=== PATIENT | female | born 1990 | race African-American/Black ===

== ENCOUNTER 2016-03-19 20:03 | Inpatient (IN) | payer OTHER ==
[~2016-03-19] VITALS: Ht 152.4 cm; Wt 103.9 kg
[2016-03-19] VITALS (8 sets, daily range): BP systolic 101–115; BP diastolic 53–60; PULSE 58–84; RESP 18; TEMP 97.6; O2SAT 98–100
[~2016-03-19 20:03] MED LIST: ZOFR4TAB PO
[2016-03-19] MEDS ORDERED: TERBUTALINE INJ 1 MG/ML AMP ONE (20:38)
[2016-03-19] MEDS ORDERED: ACET1CAP18 PO (20:39)
[2016-03-19] MEDS ORDERED: LACTATED RINGER'S 1000 ML INJ 1,000 ML IV PRN (20:42)
[2016-03-19] MEDS ORDERED: LACTATED RINGER'S 1000 ML INJ 1,000 ML IV SCH (20:42)
[2016-03-19] MEDS ORDERED: LIDOCAINE HCL 1% 50 ML VIAL I-DERMAL PRN (20:45)
[2016-03-19] MEDS ORDERED: MINERAL OIL 10 ML VIAL TOPICAL PRN (20:45)
[2016-03-19] MEDS ORDERED: ceFAZolin 2 GM PREMIX 50 ML IV SCH (20:45)
[2016-03-19] MEDS ORDERED: OXYTOCIN 30 UNITS-500ML PREMIX 500 ML IV ONE ×2 (20:45→22:45)
[2016-03-19] MEDS ORDERED: CITRIC ACID-SODIUM CITRATE LIQ 30 ML UDC PO SCH (20:45)
[2016-03-19] MEDS ORDERED: LIDOCAINE HCL 1% 50 ML VIAL INFIL PRN (20:45)
[2016-03-19] MEDS ORDERED: SODIUM CHLORID 0.9% 500 ML INJ 500 ML IV PRN (20:45)
[2016-03-19] MEDS ORDERED: MORPHINE SULFATE PF 5 MG/10 ML VIAL IT ONE (21:00)
[2016-03-19] MEDS ORDERED: SODIUM CHLOR 0.9% 1000 ML INJ 1,000 ML IV PRN (21:02)
[2016-03-19] MEDS ORDERED: OXYTOCIN 10 UNIT/ML AMP ONE (21:08)
--- NOTE | 2016-03-19 21:08 | PD ---
HPI Date Seen: Mar 19, 2016 Time Seen: 20:30 (Jose Polanco MD R1) Travel History International Travel<30 Days: No Contact w/Intl Traveler<30Days: No Known Affected Area: No (Jose Polanco MD R1) History of Present Illness HPI 25-year-old at 38/3 weeks gestation with one visit with Dr. Elis huynh and no other pale care presenting with a one-day history of severe lower pelvic pain. Pain began yesterday around 2-3 PM. Started as moderate pressure in the lower pelvis, occurred intermittently. Progressively became more intense and more frequent, prompting presentation to OB ED. No vaginal bleeding, leakage of fluid. [place] movement yesterday evening, not since. No dysuria, flank pain, RUQ pain, fevers, chills, N/V/D. (Jose Polanco MD R1) History Past Medical History Medical History: Denies Significant Hx (Jose Polanco MD R1) Obstetric History Obstetric History One in 2014 First baby born by (Jose Polanco MD R1) Past Surgical History Narrative Surgical Cholecystectomy (Jose Polanco MD R1) Family History Family History: Negative (Jose Polanco MD R1) Social History Alcohol Use: No Tobacco Use: Yes ([place] since age 15; currently smoking about 2 cigarettes daily) Substance Abuse: Yes (Marijuana daily) (Jose Polanco MD R1) Allergies-Medications (Allergen,Severity, Reaction): Coded Allergies: No Known Allergies (Verified , 03/19/16) Home Meds Reported Medications Acetaminophen (Tylenol)325 Mg Qmr769 Mg PO Q6H PRN (PAIN SCALE 1 TO 10) #2 CAP Ref 0 03/19/16 Discontinued Reported Medications Ondansetron (Zofran)4 Mg Tab4 Mg PO Q8HR PRN (NAUSEA OR VOMITING) Ref 0 01/26/16 Review of Systems Except as stated in HPI: all other systems reviewed are Neg (Jose Polanco MD R1) Physical Exam Narrative GENERAL: Well-nourished, well-developed patient, appearing anxious and intermittently distressed due to pain SKIN: Warm and dry. HEAD: Normocephalic and atraumatic. EYES: No scleral icterus. No injection or drainage. ENT: No nasal drainage noted. Mucous membranes pink. Airway patent. NECK: Supple, trachea midline. No JVD. CARDIOVASCULAR: Tachycardic with regular rhythm, no murmurs, gallops, or rubs. RESPIRATORY: Breath sounds equal bilaterally. No accessory muscle use. ABDOMEN/GI: Abdomen soft, non-tender, no rebound, no guarding GENITOURINARY: External Genitalia: intact and normal in appearance Cervix: Anterior Dilatation: 4-5 Effacement: 70 Station: -3 Presentation: Vertex Membranes: bulging (intact) Uterine Contractions: Irregular every 3-10 mins FHT's: Category: 1 Baseline: 130 Reactive: Y Variability: moderate Decels: N EXTREMITIES: No cyanosis or edema. BACK: Nontender without obvious deformity. No CVA tenderness. NEUROLOGICAL: Awake and alert. Motor and sensory grossly within normal limits. Normal speech. (Jose Polanco MD R1) Data Data Vital Signs Reviewed: Yes Orders Admit To Inpatient (03/19/16 ) Ob (2e) Additional Admit Info (03/19/16 20:25) Terbutaline Inj (Brethine Inj) (03/19/16 20:38) Admit To Inpatient (03/19/16 ) Vital Signs (Adult) .Per protocol (03/19/16 20:42) ^ Heart (03/19/16 20:42) ^ Amnioinfusion (03/19/16 20:42) Urinary Catheter Management .ONCE (03/19/16 20:42) Lactated Ringer's 1000 Ml Inj (Lr 1000 M (03/19/16 20:42) Lactated Ringer's 1000 Ml Inj (Lr 1000 M (03/19/16 20:42) Sodium Chlorid 0.9% 500 Ml Inj (Ns 500 M (03/19/16 20:45) Sodium Chlor 0.9% 1000 Ml Inj (Ns 1000 M (03/19/16 21:02) Lidocaine 1% Inj (50 Ml) (Xylocaine 1% I (03/19/16 20:45) Citric Acid-Sodium Citrate Liq (Bicitra (03/19/16 20:45) Fentanyl Inj (Fentanyl Inj) (03/19/16 20:45) Fentanyl Inj (Fentanyl Inj) (03/19/16 20:45) Complete Blood Count With Diff (03/19/16 20:42) Hold Clot (03/19/16 20:42) Abo/Rh Blood Type (03/19/16 20:42) Resp Oxygen Non Rebreathe Mask (03/19/16 ) ^ Epidural / Intrathecal Infus (03/19/16 20:42) Oxytocin 30 Units-500ml Premix (Pitocin (03/19/16 20:45) Lidocaine 1% Inj (50 Ml) (Xylocaine 1% I (03/19/16 20:45) Light Mineral Oil (Muri-Lube Oil) (03/19/16 20:45) Cefazolin 2 Gm Premix (Ancef 2 Gm Premix (03/19/16 20:45) Inpatient Certification (03/19/16 ) Specimen To Be Collected PRN (03/19/16 20:42) No Care Spec Serology (03/19/16 20:42) Urinalysis - C+S If Indicated (03/19/16 20:48) Rubella Immune Status (03/19/16 20:48) Rapid Plasma Regin (Rpr) W Ttr (03/19/16 20:48) Hepatitis Profile (03/19/16 20:48) Ob/Psych Drug Screen, Urine (03/19/16 20:49) (Jose Polanco MD R1) MDM Medical Record Reviewed: Yes Interpretation(s) 25 year old at 38/3 weeks presenting in labor Narrative Course / MDM #1 IUP Category 1 tracing, reassuring * FHT monitoring until delivery #2 Poor PNC / GBS unknown Saw Dr. Hill once, otherwise no PNC * Intrapartum antibiotic PPX * Obtain labs #3 Labor Desires C/S * One dose terbutaline IM to stop contractions * To OR for C/S * Anesthesia via epidural * Ancef prior to surgery * CBC, CMP, UA #4 Marijuana use Daily marijuana user * Drug screen OB sdw Dr. Tri Escobedo (Jose Polanco MD R1) Diagnosis Diagnosis: Primary Impression: Normal labor Attestation Patient seen and examined with the resident under direct supervision, I agree with the assessment and plan. (Alberto Amezquita MD) Jose Polanco MD R1 Mar 19, 2016 21:08 Alberto Amezquita MD Mar 20, 2016 02:17
[2016-03-19 21:09] LABS: AUTOMATED NEUTROPHIL # 3.8 TH/MM3 (1.8-7.7); BASOPHIL % 0.8 % (0.0-2.0); EOSINOPHIL % 0.5 % (0.0-4.0); HEMATOCRIT 32.6 % (35.0-46.0); HEMO FLAGS DIFF FINAL; LYMPH % 31.2 % (9.0-44.0); MEAN CORPUSCULAR HEMOGLOBIN 30.1 PG (27.0-34.0); MEAN CORPUSCULAR HGB CONC 33.8 % (32.0-36.0); MONO % 8.5 % (0.0-8.0); PLATELET COUNT 194 TH/MM3 (150-450); RED BLOOD COUNT 3.67 MIL/MM3 (4.00-5.30); RED CELL DISTRIBUTION WIDTH 13.8 % (11.6-17.2); WHITE BLOOD COUNT 6.5 TH/MM3 (4.0-11.0)
[2016-03-19] MEDS ORDERED: ONDANSETRON HCL 4 MG/2 ML VIAL IV PUSH ONE (21:15)
[2016-03-19 21:37] LABS: ALKALINE PHOSPHATASE 211 U/L (45-117); ALT (GPT) 12 U/L (10-53); ANION GAP 12 MEQ/L (5-15); AST (GOT) 23 U/L (15-37); BLOOD UREA NITROGEN 5 MG/DL (7-18); CHLORIDE 106 MEQ/L (98-107); GLOMERULAR FILTRATION RATE 142 ML/MIN (>89); SODIUM (NA) 138 MEQ/L (136-145); TOTAL BILIRUBIN ADULT 0.5 MG/DL (0.2-1.0); URIC ACID 3.4 MG/DL (2.6-6.0)
[2016-03-19 21:38] LABS: POTASSIUM 3.7 MEQ/L (3.5-5.1)
[2016-03-19 21:47] LABS: RUBELLA IGG ANTIBODY 195.1 IU/mL (10.0-500.0); RUBELLA STATUS IMMUNE (IMMUNE)
[2016-03-19] MEDS ORDERED: MIDAZOLAM HCL 2 MG/2 ML VIAL IVP ONE (22:00)
[2016-03-19] MEDS ORDERED: LACTATED RINGER'S 1,000 ML BAG IV ONE (22:00)
[2016-03-19 22:09] LABS: BLOOD GAS BASE EXCESS -4.1 mmol/L (-2-2); BLOOD GAS O2 HGB SATURATION 64 % (90-100); CORD BLOOD GAS HCO3 21 mmol/L (21-29); CORD BLOOD GAS PCO2 38 mmHG (34-78); CORD BLOOD GAS PH 7.35 (7.14-7.42); CORD BLOOD GAS PO2 29 mmHG (3.0-40.0)
[2016-03-19 22:10] LABS: DRAW SITE CORD BLOOD; STAT NO
[2016-03-19] MEDS ORDERED: MORPHINE SULFATE PF 5 MG/10 ML VIAL ONE (22:34)
[2016-03-19] MEDS ORDERED: MIDAZOLAM HCL 2 MG/2 ML VIAL ONE (22:34)
[2016-03-19] MEDS ORDERED: ONDANSETRON HCL 4 MG/2 ML VIAL ONE (22:34)
--- NOTE | 2016-03-19 22:40 | PD.OP ---
Operative Report Date of Surgery: Mar 19, 2016 Preoperative Diagnosis: (1) with 38 completed weeks gestation (2) No care in current (3) Normal labor (4) History of section, low transverse 25 years old 011 at 38 weeks and 3 days of gestation in active labor, history of previous section 1, declined trial of labor after , no care in current . Postoperative Diagnosis: (1) with 38 completed weeks gestation (2) History of section, low transverse (3) Normal labor (4) No care in current (5) Thin meconium stained amniotic fluid Term at 38 weeks and 3 days of gestation in active labor, history of previous section 1, patient declines trial of labor after , no care in current . Adhesion of the omentum to the anterior abdominal wall, thin meconium-stained amniotic fluid. Procedure: 1. Repeat low segment transverse section via P Pfannenstiel skin incision. 2. Lysis of adhesions. Anesthesia: Spinal Anesthesiologist: Ozzie (JILL) Surgeon: Alberto Amezquita M.D Pruner(s): Dr. Deni Bartlett M.D PGY 2 resident Resident Surgeon: Gilmar Torres D. PGY 2 resident Operation and Findings: Estimated blood loss: 600 mL, urine output is 75 mL of clear urine at the end of the procedure, IV fluids: 2000 mL of Ringer's lactate Complications: None Specimens: Placenta with true knot sent to pathology. Findings: Live male infant in cephalic presentation, Apgars 9 at 1 minute and 9 at 5 minutes, nursery team present at delivery, weight 3505 g, 7 lbs. 11.6oz. Time of delivery 21:45 hours. There is adhesions of the omentum to the anterior abdominal wall. Normal uterus, tubes, and ovaries. Indications: 25-year-old 011 at 38weeks and 3 day of gestation with history of previous section presents to labor and delivery in labor. Patient has scant care. labs are not available. Examination shows patient is nallely every 2-3 minutes, vaginal exam shows cervix is 4-5 cm dilated 80% efface and -2 station with bulging membrane, option of trial of labor after was offered to the patient, however the patient declined and elected to have a repeat section. The risks, benefits, indications and alternatives of a repeat section were reviewed with the patient including but not limited to increased risks of bleeding, infection, damage to the bladder, bowel, ureters, blood vessels and nerves. Increased risks of DVT and PE were discussed, all questions were answered and informed consent was obtained. Procedures: After informed consent was obtained the patient was taken to the operating room where spinal anesthesia was obtained without difficulty. She was then prepped and draped in the normal sterile fashion in the dorsal supine position with a leftward tilt. A repeat Pfannenstiel skin incision was then made with the scalpel along the previous line of incision and carried through to the underlying layer of fascia with the Bovie. The fascia was incised in the midline and incision extended laterally with the Combs scissors. The superior aspect of the fascial incision was then grasped with Tania clamps, elevated, and the underlying rectus muscles dissected off bluntly. Attention was then turned to the inferior aspect of this incision which in in a similar fashion was grasped, tented up with the Tania clamps and the rectus muscle dissected off bluntly. The rectus muscles were then in the midline and the peritoneum identified, tented up, and entered sharply with the Metzenbaum scissors. The peritoneal incision was then extended superiorly and inferiorly with good visualization of the bladder. Adhesions of the omentum to the anterior abdominal wall was encountered and this was lysed without complications, hemostasis was assured. The bladder blade was then inserted and the vesicouterine peritoneum identified, grasped with the pickups, and entered sharply with the Metzenbaum scissors. This incision was then extended laterally and the bladder flap created digitally. The bladder blade was then reinserted and the lower uterine segment incised in a transverse fashion with the scalpel. The uterine incision was then extended laterally with the bandage scissors. The bladder blade was removed and the 's head was delivered atraumatically. Meconium stained amniotic fluid was noted, the was noted to be in a direct occiput posterior position. The mouth and nose were suctioned with a bulb suction and the cord was clamped and cut. The infant was handed off to the waiting nursing team. Cord blood was obtained. The placenta was then removed manually, the uterus was externalized and cleared of all clots and debris. The uterine incision was repaired with 0 Vicryl in a running locked fashion. A second layer of the same suture was used to obtain excellent hemostasis. The bladder flap was repaired with 3-0 Vicryl in a running stitch. The uterus and the tubes were then returned to the abdomen. The gutters were cleared of all clots and debris and the peritoneum was closed with the 2-0 chromic suture. The fascia was reapproximated with 0 Vicryl in a running fashion. The skin was closed in a subcuticular fashion using 3-0 Monocryl. Dermabond was applied to the incision as well as Steri-Strips. The patient tolerated the procedure well. All sponges, laps, needle and instrument counts were correct 2. The patient received 2 g of Ancef prior to surgery. The patient was taken to the recovery area in stable condition. Alberto Amezquita MD Mar 19, 2016 22:40
[2016-03-19] MEDS ORDERED: SIMETHICONE 80 MG CHEWABLE TAB PO PRN (22:45)
[2016-03-19] MEDS ORDERED: SODIUM CHLORIDE 0.9% FLUSH 5 ML FLUSH IV PRN (22:45)
[2016-03-19] MEDS ORDERED: ZOLPIDEM TARTRATE 5 MG TAB PO PRN (22:45)
[2016-03-19] MEDS ORDERED: SODIUM CHLORIDE 0.9% FLUSH 5 ML FLUSH IV SCH (22:45)
[2016-03-19] MEDS ORDERED: KETOROLAC TROMETHAMINE 60 MG/2 ML (IM) VIAL IM PRN (22:45)
[2016-03-19] MEDS ORDERED: oxyCODONE/ACETAMINOPHEN 5 MG/325 MG TAB PO PRN (22:45)
[2016-03-19] MEDS ORDERED: ACETAMINOPHEN 325 MG TAB PO PRN (22:45)
[2016-03-19] MEDS ORDERED: ACETAMINOPHEN 1000 MG/100 ML VIAL IV ONE ×2 (22:45→23:26)
[2016-03-19 22:57] LABS: BLOOD, URINE NEG (NEG); COMMENT (UR) CULT NOT INDICATED; CULTURE IF INDICATED CULT NOT INDICATED; GLUCOSE,URINE NEG (NEG); KETONE, URINE 10 mg/dL (NEG); MUCUS URINE FEW /lpf (OCC); NITRITE,URINE NEG (NEG); PH, URINE 6.5 (5.0-8.5); SQUAMOUS EPITHELIAL CELL URINE <1 /hpf (0-5); URINE COLOR YELLOW (YELLW/STRAW)
[2016-03-19 23:17] LABS: AMPHETAMINE, URINE NEG (NEG); BARBITURATES, URINE NEG (NEG); COCAINE, URINE NEG (NEG)
[2016-03-19] MEDS ORDERED: OXYTOCIN 30 UNITS-500ML PREMIX 500 ML ONE (23:25)
[2016-03-19] MEDS ORDERED: KETOROLAC TROMETHAMINE 30 MG/ML (IVP) VIAL ONE (23:25)
[2016-03-20] VITALS (11 sets, daily range): BP systolic 102–134; BP diastolic 57–78; PULSE 59–83; RESP 16–20; TEMP 97.4–98.6; O2SAT 100
[2016-03-20] MEDS ORDERED: EPIDURAL-DIPHENHYDRAMINE HCL 50 MG/ML VIAL IV PUSH PRN (00:15)
[2016-03-20] MEDS ORDERED: EPIDURAL-DO NOT ADMINISTER ANTICOAGULANTS XX PRN (00:15)
[2016-03-20] MEDS ORDERED: EPIDURAL-NO SYSTEMIC NARCOTICS XX PRN (00:15)
[2016-03-20] MEDS ORDERED: EPIDURAL-NALOXONE HCL 0.4 MG/ML AMP IV PRN (00:15)
[2016-03-20] MEDS ORDERED: EPIDURAL-DIPHENHYDRAMINE HCL 50 MG CAP PO PRN (00:15)
[2016-03-20] MEDS ORDERED: LACTATED RINGER'S 1000 ML INJ 1,000 ML IV SCH (03:33)
[2016-03-20] MEDS: ONDANSETRON HCL 4 MG/2 ML VIAL IV PUSH PRN ×2 (03:59→09:17)
[2016-03-20 06:01] LABS: AUTOMATED NEUTROPHIL # 7.9 TH/MM3 (1.8-7.7); BASOPHIL % 0.3 % (0.0-2.0); EOSINOPHIL % 0.1 % (0.0-4.0); HEMATOCRIT 29.7 % (35.0-46.0); HEMO FLAGS DIFF FINAL; LYMPH % 18.2 % (9.0-44.0); MEAN CELL VOLUME 89.8 FL (80.0-100.0); MEAN CORPUSCULAR HEMOGLOBIN 30.2 PG (27.0-34.0); MEAN CORPUSCULAR HGB CONC 33.6 % (32.0-36.0); MONO % 7.5 % (0.0-8.0); NEUT % 73.9 % (16.0-70.0); PLATELET COUNT 190 TH/MM3 (150-450); RED BLOOD COUNT 3.31 MIL/MM3 (4.00-5.30); WHITE BLOOD COUNT 10.7 TH/MM3 (4.0-11.0)
--- NOTE | 2016-03-20 07:20 | HHI.OB ---
Subjective Post Operative Day: 1 Remarks POD 1. AFVSS with mild hypotension to 100/70. Pain is well-controlled- see has not taken pain medicine. Moderate lochia. Feeding via bottle. Discussed breast feeding patient declined because smokes tobacco. Explained this would not interfere with breast feeding, pt still declined. Significant nausea and vomiting. Wants to eat, but feels can not tolerate food right now. Has not yet been OOB. Declines ice chips or swabs to wet mouth- "they will not help". Denies calf pain, SOB, or cough. Denies flatus. Denies bowel movement. Contraceptive preference is Depo. Risks/benefits discussed. (Angela Bui MD R1) Objective Vitals/I&O Vital Signs Date Time Temp Pulse Resp B/P Pulse Ox O2 Delivery O2 Flow Rate FiO2 03/20/16 04:07 97.4 03/20/16 04:07 59 102/57 100 03/20/16 03:38 16 03/20/16 03:25 16 03/20/16 00:21 83 16 134/73 100 03/20/16 00:21 97.5 03/19/16 23:37 60 18 115/60 99 03/19/16 23:22 106/60 03/19/16 23:19 73 18 100 03/19/16 23:03 58 18 106/58 100 03/19/16 22:51 99 03/19/16 22:50 60 03/19/16 22:49 84 18 101/56 03/19/16 22:49 71 03/19/16 22:25 97.6 71 18 101/56 98 03/19/16 22:25 84 108/53 (Angela Bui MD R1) Result Diagram: 03/20/1652703/19/162049 Objective Remarks GENERAL: Well-nourished, well-developed patient. CARDIOVASCULAR: Regular rate and rhythm without murmurs, gallops, or rubs. RESPIRATORY: Breath sounds equal bilaterally. No accessory muscle use. ABDOMEN/GI: Abdomen soft, non-tender, bowel sounds present. Incision: Clean, dry and intact. Fundus: Firm, non-tender at umbilicus. GENITOURINARY: Light to moderate bleeding. EXTREMITIES: No cyanosis or edema, non-tender, without signs of DVT. Medications and IVs Current Medications Medications (Trade) Dose Ordered Sig/Benedict Route Start Time Stop Time Status Last Admin Lactated Ringer's 1,000 ml @ 125 mls/hr Q8H IV 03/19/16 20:42 03/19/16 20:42 Lactated Ringer's 1,000 ml @ 3,000 mls/hr Q20M PRN IV 03/19/16 20:42 Sodium Chloride 500 ml @ 1,000 mls/hr ONCE PRN IV 03/19/16 20:45 03/20/16 20:44 (NS 1000 ml Inj) 1,000 ml @ 100 mls/hr Q10H PRN IV 03/19/16 21:02 (fentaNYL INJ) 50 mcg Q1H PRN IV PUSH 03/19/16 20:45 Fentanyl Citrate 100 mcg 100 mcg Q1H PRN IV PUSH 03/19/16 20:45 (Lr 1000 ml Inj) 1,000 ml @ 100 mls/hr Q10H IV 03/20/16 03:33 03/20/16 23:32 03/20/16 03:59 (NS Flush) 2 ml BID IV 03/19/16 22:45 (NS Flush) 2 ml UNSCH PRN IV 03/19/16 22:45 (Mylicon Chew) 80 mg QID PRN PO 03/19/16 22:45 (Tylenol) 650 mg Q6H PRN PO 03/19/16 22:45 (Motrin) 600 mg Q6H PRN PO 03/19/16 22:45 (Toradol Inj) 30 mg Q6H PRN IM 03/19/16 22:45 03/20/16 22:44 (Percocet 5-325 Mg) 1 tab Q4H PRN PO 03/19/16 22:45 Oxycodone/ Acetaminophen 2 tab 2 tab Q4H PRN PO 03/19/16 22:45 (Ancef Inj/NS Inj) 100 ml @ 200 mls/hr Q8H IV 03/20/16 05:00 03/20/16 13:29 03/20/16 03:59 (Brittany-Colace) 2 tab Q12H PRN PO 03/19/16 22:45 (Ambien) 5 mg HS PRN PO 03/19/16 22:45 (M-M-R Ii Inj) 0.5 ml ONCE ONCE SQ 03/20/16 16:00 03/20/16 16:01 (Boostrix Inj) 0.5 ml ONCE ONCE IM 03/20/16 16:00 03/20/16 16:01 (Zofran Inj) 4 mg Q6H PRN IV PUSH 03/19/16 22:45 03/20/16 03:59 Miscellaneous Information NO SYSTEMIC NARCOTICS TO BE GIVEN FO... UNSCH PRN XX 03/20/16 00:15 03/21/16 00:14 (Narcan Inj) 0.4 mg UNSCH PRN IV 03/20/16 00:15 03/21/16 00:14 (Benadryl Inj) 25 mg Q6H PRN IV PUSH 03/20/16 00:15 03/21/16 00:14 (Benadryl) 50 mg Q6H PRN PO 03/20/16 00:15 03/21/16 00:14 Miscellaneous Information ALL NURSING DEPARTMENTS UNSCH PRN XX 03/20/16 00:15 03/21/16 00:14 (Angela Bui MD R1) Assessment/Plan Problem List: (1) delivery delivered (2) Nausea & vomiting Assessment and Plan 25y female POD1 s/p repeat . 1. Delivery by c/s -Continue routine care -H/H stable -Motrin and Percocet PRN pain -Encouraged OOB. Advised pelvic rest for 6 wks -Follow up OB appointment in within 1 week and 6 weeks for incision check- follows with [facility] -Feeding baby by bottle. Counseled to breast feed- declined. -Desires Depo shot for contraception -Discharge 1-2 days pending VSS 2.Nausea/Vomiting -IVF @100mL/hr -Zofran IV PRN -Minimize pain meds -Advance diet as tolerated -Ice chips and mouth swabs, as desired SDW Dr. Mancilla (Angela Bui MD R1) Attending Attestation Patient seen and evaluated with the resident under direct supervision, I agree with the assessment and plan. (Alberto Amezquita MD) Angela Bui MD R1 Mar 20, 2016 07:20 Alberto Amezquita MD Mar 25, 2016 18:55
[2016-03-20] MEDS ORDERED: medroxyPROGESTERone ACETATE SUSP 150 MG/ML SYRINGE IM ONE (08:00)
[2016-03-20] MEDS ORDERED: OXYTOCIN 30 UNITS-500ML PREMIX 500 ML IV PRN (08:45)
[2016-03-20] MEDS ORDERED: ONDANSETRON ODT 4 MG TAB PO PRN (09:30)
[2016-03-20] MEDS ORDERED: PROCHLORPERAZINE INJ 10 MG/2 ML VIAL IVS ONE (10:15)
[2016-03-20] MEDS ORDERED: PROCHLORPERAZINE INJ 10 MG/2 ML VIAL IVS PRN (13:30)
[2016-03-20 15:46] LABS: RAPID PLASMA REAGIN SCREEN NON-REACTIVE (NON-REACTVE)
[2016-03-20] MEDS ORDERED: DIPHTH/TETANUS/ACEL PERTUSSIS (BOOSTER) 0.5 ML VIAL/PFS IM ONE (16:00)
[2016-03-20] MEDS ORDERED: MEASLES, MUMPS, RUBELLA VACCINE 0.5 ML VIAL SQ ONE (16:00)
[2016-03-20] MEDS: IBUPROFEN 600 MG TAB PO PRN (16:46)
[2016-03-20] MEDS: DOCUSATE SODIUM 50 MG/SENNA 8.6 MG TAB PO PRN (19:29)
[2016-03-20] MEDS: oxyCODONE/ACETAMINOPHEN 5 MG/325 MG TAB PO PRN ×2 (19:30→23:59)
[2016-03-21] MEDS: oxyCODONE/ACETAMINOPHEN 5 MG/325 MG TAB PO PRN ×4 (06:08→20:59)
[2016-03-21] MEDS: IBUPROFEN 600 MG TAB PO PRN ×4 (06:08→21:00)
--- NOTE | 2016-03-21 07:23 | HHI.OB ---
Subjective Post Operative Day: 2 Remarks POD2. AFVSS with mild hypotension to 110/80. Abdominal pain is worse today, but well controlled with medicine. Lochia is decreasing. Feeding via formula only. Discussed breast feeding and/or pumping, patient declined. Significantly decreased n/v. Last emesis yesterday evening. Eating, voiding, ambulating without difficulty. Has not yet passed flatus or BM- likely secondary to significant nausea/vomiting Denies fevers/chills, SOB/chest pain, or calf pain. Contraceptive preference is Depo. Does not have PCP. Has heartburn- asking for medication to treat. Objective Vitals/I&O Vital Signs Date Time Temp Pulse Resp B/P Pulse Ox O2 Delivery O2 Flow Rate FiO2 03/20/16 15:13 98.6 03/20/16 15:12 108/78 03/20/16 15:12 80 20 03/20/16 09:00 98.0 62 18 03/20/16 08:59 108/64 Result Diagram: 03/20/1652703/19/162049 Objective Remarks GENERAL: Well-nourished, well-developed patient. CARDIOVASCULAR: Regular rate and rhythm without murmurs, gallops, or rubs. RESPIRATORY: Breath sounds equal bilaterally. No accessory muscle use. ABDOMEN/GI: Abdomen soft, non-tender, bowel sounds present. Incision: Clean, dry and intact. Fundus: Firm, non-tender at umbilicus. GENITOURINARY: Light to moderate bleeding. EXTREMITIES: No cyanosis or edema, non-tender, without signs of DVT. Medications and IVs Current Medications Medications (Trade) Dose Ordered Sig/Benedict Route Start Time Stop Time Status Last Admin Lactated Ringer's 1,000 ml @ 125 mls/hr Q8H IV 03/19/16 20:42 03/19/16 20:42 Lactated Ringer's 1,000 ml @ 3,000 mls/hr Q20M PRN IV 03/19/16 20:42 (NS 1000 ml Inj) 1,000 ml @ 100 mls/hr Q10H PRN IV 03/19/16 21:02 (fentaNYL INJ) 50 mcg Q1H PRN IV PUSH 03/19/16 20:45 (fentaNYL INJ) 100 mcg Q1H PRN IV PUSH 03/19/16 20:45 (NS Flush) 2 ml BID IV 03/19/16 22:45 (NS Flush) 2 ml UNSCH PRN IV 03/19/16 22:45 (Mylicon Chew) 80 mg QID PRN PO 03/19/16 22:45 (Tylenol) 650 mg Q6H PRN PO 03/19/16 22:45 (Motrin) 600 mg Q6H PRN PO 03/19/16 22:45 03/21/16 06:08 (Percocet 5-325 Mg) 1 tab Q4H PRN PO 03/19/16 22:45 (Percocet 5-325 Mg) 2 tab Q4H PRN PO 03/19/16 22:45 03/21/16 06:08 (Brittany-Colace) 2 tab Q12H PRN PO 03/19/16 22:45 03/20/16 19:29 (Ambien) 5 mg HS PRN PO 03/19/16 22:45 (Zofran Odt) 4 mg Q4H PRN PO 03/20/16 09:30 (Compazine Inj) 5 mg Q3H PRN IVS 03/20/16 13:30 Assessment/Plan Problem List: (1) delivery delivered (2) Nausea & vomiting Assessment and Plan 25y female POD2 s/p repeat . 1. Delivery by c/s -Continue routine care -H/H stable -Motrin and Percocet PRN pain -Encouraged OOB. Advised pelvic rest for 6 wks -Follow up OB appointment in within 1 week and 6 weeks for incision check- follows with [facility] -Feeding baby by bottle. Counseled to breast feed- declined. -Desires Depo shot for contraception -Discharge tomorrow pending VSS and pain control 2. GERD -Tums 2 tabs BID PRN heartburn -Ranitidine 150mg PO daily BENEDICT, discharge with medication 3.Nausea/Vomiting -Resolved -Discontinued IVF -Zofran IV PRN -Advance diet as tolerated SDW Dr. Mancilla DW: Dr Amdao Discharge Planning POD2, tomorrow Angela Bui MD R1 Mar 21, 2016 07:23
[2016-03-21 08:25] VITALS: BP 114/51; PULSE 60; RESP 16; TEMP 98.5
[2016-03-21] MEDS ORDERED: FAMOTIDINE 20 MG TAB PO ONE (09:00)
[2016-03-21] MEDS: DOCUSATE SODIUM 50 MG/SENNA 8.6 MG TAB PO PRN (10:22)
[2016-03-21] MEDS: CALCIUM CARBONATE 500 MG CHEWABLE TAB CHEW SCH ×2 (10:23→21:00)
[2016-03-21] MEDS ORDERED: medroxyPROGESTERone ACETATE SUSP 150 MG/ML SYRINGE IM ONE (11:00)
[2016-03-21 19:29] VITALS: BP 117/67; PULSE 73; RESP 17; TEMP 98.6
[2016-03-22] MEDS: CALCIUM CARBONATE 500 MG CHEWABLE TAB CHEW SCH ×2 (01:49→08:42)
[2016-03-22] MEDS: IBUPROFEN 600 MG TAB PO PRN ×2 (02:50→08:43)
[2016-03-22] MEDS: oxyCODONE/ACETAMINOPHEN 5 MG/325 MG TAB PO PRN ×2 (02:50→08:42)
[2016-03-22] MEDS ORDERED: SENN1TAB PO (07:20)
[2016-03-22] MEDS ORDERED: OXYC1TAB63 PO (07:20)
[2016-03-22] MEDS ORDERED: IBUP-232 PO (07:20)
--- NOTE | 2016-03-22 07:21 | HHI.DCPOC ---
Discharge Care Plan Diagnosis: (1) delivery delivered Report Symptoms to Your Doctor -Temperate above 100.5 degrees -Redness, of incision or excessive or foul smelling drainage -Unusual pain or calf pain -Increased vaginal bleeding -Painful or difficulty urinating -Feelings of extreme sadness or anxiety after 2 weeks Goals to Promote Your Health * To prevent worsening of your condition and complications * To maintain your health at the optimal level Directions to Meet Your Goals Take your medications as prescribed Follow your dietary instruction Follow activity as directed Ensure plenty of rest for recovery Drink fluids for hydration Keep your appointments as scheduled Take your immunizations and boosters as scheduled If your symptoms worsen call your PCP, if no PCP go to Urgent Care Center or Emergency Room Smoking is Dangerous to Your Health. Avoid second hand smoke Call the 24-hour crisis hotline for domestic abuse at Patient seen before discharge. Agree with above plan of discharge care. Kaushal Mancilla MD R2 Mar 22, 2016 07:21 Cindy Rangel MD Mar 22, 2016 07:58
--- NOTE | 2016-03-22 07:21 | HHI.OB ---
Subjective Post Operative Day: 3 Remarks POD3. AFVSS. Abdominal pain is moderate at incision site, but well controlled with medicine. Lochia is decreasing, but significant enough she is wearing a pad. Feeding via formula only. Patient declined breast feeding and/or pumping - Case Management consulted. Tums controlled heartburn well. Objective Vitals/I&O Vital Signs Date Time Temp Pulse Resp B/P Pulse Ox O2 Delivery O2 Flow Rate FiO2 03/21/16 19:29 73 17 117/67 03/21/16 19:29 98.6 03/21/16 08:25 98.5 03/21/16 08:25 60 16 114/51 Result Diagram: 03/20/16 0528 03/19/162049 Objective Remarks GENERAL: Well-nourished, well-developed patient. CARDIOVASCULAR: Regular rate and rhythm without murmurs, gallops, or rubs. RESPIRATORY: Breath sounds equal bilaterally. No accessory muscle use. ABDOMEN/GI: Abdomen soft, non-tender, bowel sounds present. Incision: Clean, dry and intact. Fundus: Firm, non-tender at umbilicus. GENITOURINARY: Light to moderate bleeding. EXTREMITIES: No cyanosis or edema, non-tender, without signs of DVT. Medications and IVs Current Medications Medications (Trade) Dose Ordered Sig/Benedict Route Start Time Stop Time Status Last Admin (fentaNYL INJ) 50 mcg Q1H PRN IV PUSH 03/19/16 20:45 (fentaNYL INJ) 100 mcg Q1H PRN IV PUSH 03/19/16 20:45 (NS Flush) 2 ml BID IV 03/19/16 22:45 (NS Flush) 2 ml UNSCH PRN IV 03/19/16 22:45 (Mylicon Chew) 80 mg QID PRN PO 03/19/16 22:45 (Tylenol) 650 mg Q6H PRN PO 03/19/16 22:45 (Motrin) 600 mg Q6H PRN PO 03/19/16 22:45 03/22/16 02:50 (Percocet 5-325 Mg) 1 tab Q4H PRN PO 03/19/16 22:45 (Percocet 5-325 Mg) 2 tab Q4H PRN PO 03/19/16 22:45 03/22/16 02:50 (Brittany-Colace) 2 tab Q12H PRN PO 03/19/16 22:45 03/21/16 10:22 (Ambien) 5 mg HS PRN PO 03/19/16 22:45 (Zofran Odt) 4 mg Q4H PRN PO 03/20/16 09:30 03/21/16 22:34 (Compazine Inj) 5 mg Q3H PRN IVS 03/20/16 13:30 (Tums Chew) 500 mg Q12HR CHEW 03/21/16 09:00 03/22/16 01:49 Assessment/Plan Problem List: (1) delivery delivered (2) with 38 completed weeks gestation (3) Nausea & vomiting (4) GERD (gastroesophageal reflux disease) Assessment and Plan 25y female POD3 s/p repeat . 1. Delivery by c/s , at 38weeks gestation -Continue routine care -H/H stable -Motrin and Percocet PRN pain -Encouraged OOB. Advised pelvic rest for 6 wks -Follow up OB appointment in within 1 week and 6 weeks for incision check- follows with [facility] -Feeding baby by bottle. Counseled to breast feed- declined. -Received Depo shot for contraception (03/21/15)- follow up with PCP in 10-11 weeks for next shot -No PCP- Case management consulted -Discharge todayl 2. GERD, Resolved -Continue Tums 2 tabs BID PRN heartburn 3.Nausea/Vomiting -Resolved SDW Dr. Mancilla DW: Dr Rangel Discharge Planning POD3, today Angela Bui MD R1 Mar 22, 2016 07:21
[2016-03-22 08:50] VITALS: BP 114/70; PULSE 78; RESP 18; TEMP 98.7
[2016-03-22] MEDS ORDERED: PROCHLORPERAZINE MALEATE 10 MG TAB PO PRN (09:30)
[2016-03-22] MEDS ORDERED: PROC10TA PO (11:23)
[2016-03-23 13:01] LABS: BATH SALTS (MDPV) UR NEG (NEG); ECSTASY (MDMA) UR NEG (NEG); HEROIN (6-ACETYLMORPHINE) UR NEG (NEG); K2 SPICE UR NEG (NEG); OBMETHADONE UR NEG (NEG); OXYCODONE (PERCODAN) NEG (NEG); PHENCYCLIDINE URINE NEG (NEG)
== END 2016-03-22 12:44 | disposition home or self-care (01) | DRG 765 ==
LOC: HOBED 20:03 → H2EB 20:29 → H1EA 23:58
PROVIDERS: ADMIT Obstetrics & Gynecology; ATTEND Obstetrics & Gynecology
PROC: 10D00Z1 Extraction of Products of Conception, Low, Open Approach (ICD-10-PCS; principal; 2016-03-19)
DX: O34.211 Maternal care for low transverse scar from previous cesarean delivery (principal); O99.324 Drug use complicating childbirth; I95.9 Hypotension, unspecified; O99.334 Smoking (tobacco) complicating childbirth; F17.200 Nicotine dependence, unspecified, uncomplicated; F12.90 Cannabis use, unspecified, uncomplicated; Z37.0 Single live birth; O69.2XX0 Labor and delivery complicated by other cord entanglement, with compression, not applicable or unspecified; O77.0 Labor and delivery complicated by meconium in amniotic fluid; Z3A.38 38 weeks gestation of pregnancy; O99.62 Diseases of the digestive system complicating childbirth; K21.9 Gastro-esophageal reflux disease without esophagitis; O09.33 Supervision of pregnancy with insufficient antenatal care, third trimester; R11.2 Nausea with vomiting, unspecified
CPT/HCPCS: 80053; 80074; 80307; 81001; 82570; 82805; 84156; 84550; 85025; 86592; 86703; 86762; 86850; 86900; 86901; 88307; 99285; G0481; J0131; J0690; J0780; J1050; J1885; J2250; J2274; J2405; J2590; J3105; J7120; Q0163; Q0164

== ENCOUNTER 2017-07-28 12:58 | Emergency (ER) | payer OTHER ==
[~2017-07-28] VITALS: Ht 167.6 cm; Wt 100.0 kg
[~2017-07-28 12:58] MED LIST changes: +ACET1CAP18 PO; +IBUP-232 PO; +OXYC1TAB63 PO; +PROC10TA PO; +SENN1TAB PO; -ZOFR4TAB PO
[2017-07-28 13:03] VITALS: BP 117/72; PULSE 110; RESP 19; TEMP 98.7; O2SAT 98
[2017-07-28] MEDS ORDERED: IBUPROFEN 600 MG TAB PO ONE (13:15)
[2017-07-28] MEDS ORDERED: ACETAMINOPHEN 325 MG TAB PO ONE (13:15)
--- NOTE | 2017-07-28 13:21 | PD ---
HPI Chief Complaint: Cold / Flu Symptoms Time Seen by Provider: 13:09 Travel History International Travel<30 days: No Contact w/Intl Traveler<30days: No Traveled to known affect area: No History of Present Illness HPI 27-year-old female complains of headache, congestion, body ache, fever, poor appetite. Patient states that symptoms started yesterday. Patient denies earache or sore throat. Patient denies any coughing. Patient denies any chest pain or shortness of breath. She denies abdominal pain. Patient denies any nausea vomiting diarrhea. Patient has not taking any Tylenol or ibuprofen for the symptoms. PFSH Past Medical History Blood Disorders: No Cancer: No Cardiovascular Problems: No Diminished Hearing: No Endocrine: No Gastrointestinal Disorders: Yes (CHRONIC ABDOMINAL PAIN X3 YEARS) Genitourinary: No Musculoskeletal: No Neurologic: No Psychiatric: No Reproductive: No Respiratory: No Immunizations Current: No ?: Not LMP: 07/28/17 Menopausal: No : 3 Para: 2 Miscarriage: 0 : 1 Past Surgical History Section: Yes Cholecystectomy: Yes Gynecologic Surgery: Yes () Other Surgery: Yes (GALLSTONES REMOVED) Social History Alcohol Use: No Tobacco Use: Yes (2 cigarettes daily) Substance Use: No Allergies-Medications (Allergen,Severity, Reaction): Coded Allergies: No Known Allergies (Verified , 03/19/16) Reported Meds & Prescriptions Reported Meds & Active Scripts Active Prochlorperazine Maleate 10 Mg Tab 10 Mg PO Q8HR PRN Senna Plus 8.6-50 mg (Sennosides-Docusate Sodium) 1 Tab Tab 2 Tab PO Q12H PRN Oxycodone-Acetaminophen 5-325 mg Tab 1 Tab PO Q4H PRN Ibuprofen 600 Mg Tab 600 Mg PO Q6H PRN Reported Tylenol (Acetaminophen) 325 Mg Cap 650 Mg PO Q6H PRN Review of Systems General / Constitutional: Positive: Fever Eyes: No: Visual changes HENT: Positive: Headaches Cardiovascular: No: Chest Pain or Discomfort Respiratory: No: Shortness of Breath Gastrointestinal: No: Abdominal Pain Genitourinary: No: Dysuria Musculoskeletal: No: Pain Skin: No Rash Neurologic: No: Weakness Psychiatric: No: Depression Endocrine: No: Polydipsia Hematologic/Lymphatic: No: Easy Bruising Physical Exam Narrative GENERAL: Well-nourished, well-developed patient. SKIN: Focused skin assessment warm/dry. HEAD: Normocephalic. EYES: No scleral icterus. No injection or drainage. TM: Clear Throat: Nonerythematous. NECK: Supple, trachea midline. No JVD or lymphadenopathy. No meningismus CARDIOVASCULAR: Regular rate and rhythm without murmurs, gallops, or rubs. RESPIRATORY: Breath sounds equal bilaterally. No accessory muscle use. GASTROINTESTINAL: Abdomen soft, non-tender, nondistended. MUSCULOSKELETAL: No cyanosis, or edema. BACK: Nontender without obvious deformity. No CVA tenderness. Data Data Last Documented VS Vital Signs Date Time Temp Pulse Resp B/P (MAP) Pulse Ox O2 Delivery O2 Flow Rate FiO2 07/28/17 13:03 98.7 110 19 117/72 (87) 98 Orders Orders Acetaminophen (Tylenol) (07/28/17 13:15) Ibuprofen (Motrin) (07/28/17 13:15) MDM Medical Decision Making Medical Screen Exam Complete: Yes Emergency Medical Condition: Yes Differential Diagnosis Differential diagnosis including viral syndrome, otitis media, pharyngitis, bronchitis, pneumonia. Narrative Course 27-year-old female with headache, fever, congestion, body ache. Diagnosis Primary Impression: Viral syndrome Patient Instructions: General Instructions Additional Instructions: Tylenol ibuprofen for aching pain fever headache. Follow-up with personal physician. Return if persistent problem or worse. Med/Other Pt SpecificInfo: No Meds Exist/No RX given Disposition: 01 DISCHARGE HOME Condition: Stable José Miguel Cordova MD Jul 28, 2017 13:21
== END 2017-07-28 13:47 | disposition home or self-care (01) ==
LOC: NEPD 12:58
DX: B34.9 Viral infection, unspecified (principal); R51 Headache; R50.9 Fever, unspecified; M79.1 Myalgia; R63.0 Anorexia; Z72.0 Tobacco use; Z87.19 Personal history of other diseases of the digestive system
CPT/HCPCS: 99282